=== PATIENT | male | born 1980 | race African-American/Black ===

== ENCOUNTER 2024-03-01 00:21 | Emergency (ER) | payer SELFPAY ==
[2024-03-01 00:36] VITALS: BP 107/70; BP 134/70; PULSE 51; PULSE 52; RESP 18; TEMP 36.7; O2SAT 98; BMI 20.3
--- NOTE | 2024-03-01 00:55 | ECG_ITS ---
Test Reason : DIZZINESS Blood Pressure : / mmHG Vent. Rate : 044 BPM Atrial Rate : 044 BPM P-R Int : 182 ms QRS Dur : 092 ms QT Int : 498 ms P-R-T Axes : 026 068 054 degrees QTc Int : 425 ms Marked sinus bradycardia Abnormal ECG No previous ECGs available Referred By: Angel Gautam Electronically Signed By:ALEN TUCKER
--- NOTE | 2024-03-01 00:55 | ED_ITS ---
HPI - Chest Pain General Chief Complaint: Chest Pain Stated Complaint: dizziness/chest pain Time Seen by Provider: 03/01/24 06:32 Source: patient and EMS Mode of arrival: EMS Limitations: no limitations History of Present Illness HPI narrative: 43-year-old male presents the ER for evaluation after he felt like he was laced with fentanyl. He states he smoked a blunt with someone who he hasn't seen in 10 years. He felt tired, out of it and that it chest was going to explode shortly after smoking it. States he had anxiety and panic after smoking, prompting EMS to be called. He was dizzy without any focal weakness, numbness, tingling. Chest pain resolved upon coming to the emergency department. His dizziness slowly improved as well. He states he is depressed. His children are in the system and he has been struggling with depression and intermittent drug use for years. He denies any suicidal or homicidal thoughts. He would like to get a therapist. He states he does not drink and does not use any other drugs right now except for marijuana. MD complaint: chest pain Onset (ago): hour(s) Timing of current episode: now resolved Prior episodes: No Onset: associated with drug use Pain location: substernal Pain radiation: none Severity: severe Quality: sharp Relieving factors: nothing Exacerbating factors: nothing Associated symptoms: sense of impending doom Treatment prior to arrival: none Risk Factors Coronary artery disease risk factors: none Thoracic aortic dissection risk factors: none Related Data Allergies Allergy/AdvReac Type Severity Reaction Status Date / Time No Known Allergies Allergy Verified 03/01/24 00:39 Review of Systems 2 Review of Systems: Yes all other systems are reviewed and are negative [facility] Social History Social History Smoked in Last 30 Days: Yes Use of substances other than those prescribed or required for medical reasons: Yes Substance Use Type: Crack/Cocaine and Marijuana Substance Use Frequency: Chronic Longstanding Advance Directives: No Advance Directives Information Provided: No Do you have a plan to hurt others: No Plan Physical Exam 2 Vital Signs: Vital Signs: Last Vital Signs Temp 97.8 F 03/01/24 05:40 Pulse 44 L 03/01/24 05:40 Resp 12 03/01/24 05:40 BP 106/63 03/01/24 05:40 Pulse Ox 98 03/01/24 05:40 O2 Del Method Room Air 03/01/24 05:40 BMI result Body Mass Index 20.3 Appearance: Alert. Oriented X3. No acute distress. Head: normocephalic, atraumatic. Eyes: Pupils equal, round and reactive to light. ENT: Pharynx normal. No tonsillar swelling or exudate. Neck: Normal inspection. Neck supple. CVS: Bradycardic, regular rhythm. HR 48-50 Pulses normal. Respiratory: No respiratory distress. Breath sounds normal. Abdomen: Soft and nontender. +BS x4 Skin: Skin warm and dry. Normal skin color. Normal skin turgor. No rashes. Extremities: No lower extremity edema. No joint swelling. Neuro/psych: Oriented X 3. No motor deficit. No sensory deficit. CN II-XII intact. Normal speech and cognition. Medical Decision Making Medical Decision Making [facility] Narrative: 43-year-old male presents to the ER for evaluation of possible unintentional fentanyl use. He is concerned about his marijuana being laced with possible opiate. He reported feeling dizzy with chest pain and anxiety. Symptoms have since resolved. He was found to be bradycardic in the 40s to 50s. EKG was sinus bradycardia. Patient has not been to a doctor and a year to and does not know his baseline heart rate. He has not having any dizziness or chest pain at this time. His blood pressure is stable. His lab workup showed a mild normocytic anemia. His troponin was negative. Urinalysis showed cocaine and marijuana. No opiates. He has been observed in the emergency department for over 8 hours. He is feeling back to baseline. He is stable for discharge home. Differential Diagnosis Differential Diagnoses: The differential diagnosis associated with the presentation includes Illicit drug use, toxic ingestion, anxiety attack, ACS Admission/Observation Consideration of admission/observation: Escalation of care including admission/observation considered Lab Data [facility] Lab Attestation statement: I reviewed the patient's lab results. 03/01/24 00:58 03/01/24 00:58 Labs: Lab Results 03/01/24 03/01/24 Range/Units 00:58 07:13 WBC 4.9 (4.8-10.8) X10*3/uL RBC 3.94 L (4.60-5.80) X10*6/uL Hgb 12.6 L (14.0-18.0) g/dl Hct 36.5 L (42.0-52.0) % MCV 92.6 (80.0-98.0) fL MCH 32.0 (27.0-33.0) pg MCHC 34.5 (31.0-36.0) g/dl RDW 12.8 (11.0-16.0) % Plt Count 233 (160-400) X10*3/uL MPV 9.0 L (9.4-12.4) fL Immature Gran % (Auto) 0.6 H (0.0-0.4) % Neut % (Auto) 50.3 (45-73) % Lymph % (Auto) 37.7 (20-40) % [place] % (Auto) 9.0 (2-11) % Eos % (Auto) 2.0 (0-4) % Baso % (Auto) 0.4 (0-2) % Lymph # (Auto) 1.8 (1.2-4.9) X10*3/uL [place] # (Auto) 0.4 (0.1-1.2) X10*3/uL Eos # (Auto) 0.1 (0.0-0.4) X10*3/uL Baso # (Auto) 0.0 (0.0-0.2) X10*3/uL Abs Immat Gran (auto) 0.03 (0.00-0.03) X10*3/uL Absolute Neuts (auto) 2.5 (2.0-8.3) x10*3/uL Absolute Nucleated RBC 0.000 (0.0-0.012) X10*3/uL Nucleated RBC % (auto) 0.0 (0.0-0.2) /100WBC Sodium 138 (135-145) mmol/L Potassium 3.7 (3.3-5.1) mmol/L Chloride 107 (96-108) mmol/L Carbon Dioxide 22 (22-29) mmol/L Anion Gap 13 (12-20) BUN 18 H (9-16) mg/dL Creatinine 0.97 (0.5-1.4) mg/dL Estim Creat Clear Calc 92.7 Estimated GFR > 60 Random Glucose 114 (60-115) mg/dL Calcium 8.9 (8.4-10.2) mg/dL Total Bilirubin 0.9 (0.0-1.0) mg/dL AST 13 (5-37) U/L ALT 8 (0-40) U/L Alkaline Phosphatase 79 (39-117) U/L Troponin I High Sens < 2.7 (<3.5-35.0) ng/L Total Protein 7.0 (6.5-8.0) g/dL Albumin 4.1 (3.5-5.0) g/dL Urine Opiates Screen Not Detected (Not Detect) Ur Buprenorphine Scrn Not Detected (Not Detect) ng/mL Ur Oxycodone Screen Not Detected (Not Detect) ng/mL Urine Methadone Screen Not Detected (Not Detect) ng/mL Urine Fentanyl Screen Not Detected (Not Detect) Ur Barbiturates Screen Not Detected (Not Detect) Ur Phencyclidine Scrn Not Detected (Not Detect) Ur Amphetamines Screen Not Detected (Not Detect) U Benzodiazepines Scrn Not Detected (Not Detect) Urine Cocaine Screen POSITIVE H (Not Detect) U Marijuana (THC) Screen POSITIVE H (Not Detect) Independent Interpretation I performed an independent interpretation of an: EKG Interpretation: Sinus bradycardia, ventricular rate 44 beats per minute, normal IA interval, normal QTC, no ST segment elevations or depressions Independent Historian Clinical information obtained from an independent historian. History obtained from or confirmed by: EMS Social Determinants Patient?s care significantly limited by Social Determinants of Health including: Problems related to primary support group and Other Social Determinant of Health Critical Care Time Critical Care Time Critical Care Time: No Discharge Plan Discharge Clinical Impression: Substance abuse, Depression, Bradycardia, sinus Patient Disposition: Home, Self-Care Instructions: Depression (DC), Polysubstance Abuse (ED) Additional Instructions: Your lab workup today was unremarkable. Your urine toxicology was positive for cocaine and marijuana. Do not use illicit drugs. Follow-up with the resources provided for help with the depression. If you develop new or worsening symptoms call 911 or come back to the ER for further evaluation. Interventions: ED Discharge Assessment Last Done: 03/01/24 08:27 Print Language: Greenlandic
[2024-03-01 01:04] LABS: MANUAL DIFF FLAG NO
[2024-03-01 01:05] LABS: Basophils Percent Auto 0.4 % (0-2); Eosinophils Absolute Auto 0.1 X10*3/uL (0.0-0.4); Hematocrit 36.5 % (42.0-52.0); Hemoglobin 12.6 g/dl (14.0-18.0); Imm Gran Abs Auto 0.03 X10*3/uL (0.00-0.03); Imm Gran Pct Auto 0.6 % (0.0-0.4); Lymphocytes Absolute Auto 1.8 X10*3/uL (1.2-4.9); Lymphocytes Percent Auto 37.7 % (20-40); Mean Corpuscular HGB Conc 34.5 g/dl (31.0-36.0); Mean Corpuscular Volume 92.6 fL (80.0-98.0); Monocytes Absolute Auto 0.4 X10*3/uL (0.1-1.2); Neutrophils Absolute Auto 2.5 x10*3/uL (2.0-8.3); Neutrophils Percent Auto 50.3 % (45-73); Platelet Count 233 X10*3/uL (160-400); Red Blood Count 3.94 X10*6/uL (4.60-5.80); Red Cell Distribution Width 12.8 % (11.0-16.0); White Blood Count 4.9 X10*3/uL (4.8-10.8)
[2024-03-01 01:20] LABS: Alanine Aminotransferase 8 U/L (0-40); Albumin Level 4.1 g/dL (3.5-5.0); Alkaline Phosphatase 79 U/L (39-117); Anion Gap 13 (12-20); Aspartate Amino Transferase 13 U/L (5-37); Bilirubin Total 0.9 mg/dL (0.0-1.0); Blood Urea Nitrogen 18 mg/dL (9-16); Calcium 8.9 mg/dL (8.4-10.2); Carbon Dioxide 22 mmol/L (22-29); Chloride 107 mmol/L (96-108); Creatinine Clr Calc Pharmacy 92.7; Estimated Glomerular Filt Rate > 60; Glucose Random 114 mg/dL (60-115); Potassium 3.7 mmol/L (3.3-5.1); Sodium 138 mmol/L (135-145)
[2024-03-01 01:31] LABS: Troponin-I High Sensitivity < 2.7 ng/L (<3.5-35.0)
[2024-03-01 02:29] VITALS: BP 107/71; PULSE 43; RESP 15; O2SAT 98
--- NOTE | 2024-03-01 03:00 | PC.NURSE ---
Pt HR dropping to mid 30's while sleeping. HOB elevated and pts HR up to 41-44. Pt arousable to verbal stimuli. B/P 119/76. Dr Padron in room and aware of pts HR. Plan of care ongoing.
--- NOTE | 2024-03-01 05:38 | PC.NURSE ---
Pt ambulates with a steady gait. Plan of care ongoing.
[2024-03-01 05:40] VITALS: BP 106/63; PULSE 44; RESP 12; TEMP 36.6; O2SAT 98
[2024-03-01 07:34] LABS: Amphetamine Screen Urine Not Detected (Not Detect); Barbiturates, Urine Not Detected (Not Detect); Benzodiazepines Screen Urine Not Detected (Not Detect); Buprenorphine Scr Not Detected (Not Detect); Cannabinoid Screen Urine POSITIVE (Not Detect); Cocaine Screen Urine POSITIVE (Not Detect); Fentanyl, urine Not Detected (Not Detect); Methadone Screen, Urine Not Detected (Not Detect); Opiate Screen Urine Not Detected (Not Detect); Oxycodone Screen Urine Not Detected (Not Detect); Phencyclidine Screen Urine Not Detected (Not Detect)
[2024-03-01 08:26] VITALS: BP 100/62; PULSE 46; RESP 16; TEMP 36.6; O2SAT 100
[2024-03-01 08:27] VITALS: BP 100/62; PULSE 46; RESP 16; TEMP 36.6; O2SAT 100
== END 2024-03-01 08:28 | disposition home or self-care (01) ==
PROVIDERS: Emergency Provider Emergency Medicine
DX: F19.10 Other psychoactive substance abuse, uncomplicated (principal); R00.1 Bradycardia, unspecified; F32.A Depression, unspecified; F41.9 Anxiety disorder, unspecified
CPT/HCPCS: 36415; 80053; 80307; 84484; 85025; 93005; 99283; 99285

== ENCOUNTER → 2024-03-01 00:55 | Outpatient (BNV) | payer SELFPAY | PROVIDERS: Emergency Provider Emergency Medicine; Visit Provider Internal Medicine | DX: R00.1 Bradycardia, unspecified (principal); R94.31 Abnormal electrocardiogram [ECG] [EKG] | CPT/HCPCS: 93010 ==